=== PATIENT | male | born 1935 | race Caucasian/White ===

== ENCOUNTER 2017-02-19 07:37 | Emergency (ER) | payer MEDICARE, OTHER ==
[2017-02-19] MEDS ORDERED: Sodium Chloride 0.9% 10 ML Syringe FLUSH PRN (07:46)
[2017-02-19] MEDS ORDERED: Sodium Chloride 0.9% 500 ML IV ONE (08:02)
--- NOTE | 2017-02-19 08:13 | EDM.PDOC ---
ED HPI GENERAL MEDICAL PROBLEM - General Chief Complaint: Neurological Problem Stated Complaint: [facility] Time Seen by Provider: 02/19/17 07:46 Source of Information: Reports: Patient, RN Notes Reviewed - History of Present Illness INITIAL COMMENTS - FREE TEXT/NARRATIVE: 81-year-old gentleman has been brought in [facility] having been found on the floor this morning. He lives At [facility]. He does not recall falling. He is not sure how he ended up on the floor. States he "slept just fine" this morning he denies chest pain or difficulty breathing. Denies headache neck or back discomfort. No abdominal discomfort nausea or vomiting. He states he did have a cough a few days ago but that is gone better. He feels that he is hungry. He also feels that his mouth is mildly dry. - Related Data Allergies Allergy/AdvReac Type Severity Reaction Status Date / Time diphenhydramine HCl Allergy Itching Verified 02/19/17 07:43 [From [facility]] Home Meds: Home Meds Aspirin [Ecotrin] 81 mg PO DAILY 02/19/17 [History] Ca Carbonate/Vitamin D3/Vit K [Calcium + D Soft Chewable Tab] 600 mg PO DAILY [History] Lisinopril [Zestril] 40 mg PO DAILY 02/19/17 [History] Lutein 6 mg PO DAILY 02/19/17 [History] Magnesium Hydroxide [Milk of Magnesia] 30 ml PO DAILY PRN 02/19/17 [History] Oxybutynin [Oxybutynin ER] 5 mg PO DAILY 02/19/17 [History] Saxagliptin HCl [Onglyza] 5 mg PO DAILY 02/19/17 [History] Vitamin E 400 unit PO DAILY 02/19/17 [History] amLODIPine [Norvasc] 10 mg PO DAILY 02/19/17 [History] metFORMIN [Glucophage XR] 1,000 mg PO BID 02/19/17 [History] Past Medical History HEENT History: Reports: Macular Degeneration Cardiovascular History: Reports: Heart Murmur, High Cholesterol, Hypertension Respiratory History: Reports: Sleep Apnea Psychiatric History: Reports: Depression Endocrine/Metabolic History: Reports: Diabetes, Type II Oncologic (Cancer) History: Reports: Prostate Social & Family History - Tobacco Use Smoking Status *Q: Unknown Ever Smoked ED ROS GENERAL - Review of Systems Review Of Systems: See Below Constitutional: Denies: Fever, Chills HEENT: Denies: Sinus Problem, Throat Pain Respiratory: Denies: Shortness of Breath Cardiovascular: Denies: Chest Pain, Lightheadedness GI/Abdominal: Denies: Abdominal Pain, Diarrhea, Nausea, Vomiting Musculoskeletal: Denies: Neck Pain, Shoulder Pain, Leg Pain, Joint Pain Skin: Reports: No Symptoms Neurological: Reports: Weakness (Mild generalized). Denies: Headache, Trouble Speaking ED EXAM, NEURO - Physical Exam Exam: See Below General Appearance: Alert, No Apparent Distress Eye Exam: Bilateral Eye: PERRL Throat/Mouth: Normal Inspection, Normal Oropharynx. No: Other Head Exam: Atraumatic. No: Facial Swelling, Facial Tenderness Neck: Supple, Full Range of Motion Respiratory/Chest: No Respiratory Distress, Lungs Clear, Normal Breath Sounds, Chest Non-Tender Cardiovascular: Regular Rate, Rhythm GI/Abdominal: Soft, Non-Tender. No: Guarding Neurological: Alert, No Motor/Sensory Deficits Back Exam: Other (No bruising or swelling visible). No: CVA Tenderness (L), CVA Tenderness (R), Paraspinal Tenderness, Vertebral Tenderness Extremities: Normal Inspection, Normal Range of Motion. No: Pedal Edema, Arm Pain, Leg Pain Skin Exam: Warm, Dry, Normal Color Course - Vital Signs Last Recorded V/S: Last Vital Signs Temp 98.8 F 02/19/17 07:47 Pulse 61 02/19/17 07:47 Resp 15 02/19/17 07:47 BP 160/84 H 02/19/17 07:47 Pulse Ox 90 L 02/19/17 07:47 - Orders/Labs/Meds Orders: Active Orders 24 hr Category Date Time Status Peripheral IV Care [RC] . DIRECTED Care 02/19/17 07:47 Active Chest 1V Frontal [CR] Stat Exams 02/19/17 10:29 Taken Sodium Chloride 0.9% [Saline Flush] Med 02/19/17 07:46 Active 10 ml FLUSH ASDIRECTED PRN Peripheral IV Insertion Adult [OM.PC] Stat Oth 02/19/17 07:46 Ordered Medication Orders Sodium Chloride (Saline Flush) 10 ml FLUSH ASDIRECTED PRN PRN Reason: Keep Vein Open Last Admin: 02/19/17 08:59 Dose: 10 ml Labs: Laboratory Tests 02/19/17 02/19/17 02/19/17 Range/Units 08:10 08:10 08:10 WBC 7.37 (4.23-9.07) K/mm3 RBC 4.52 L (4.63-6.08) M/mm3 Hgb 12.4 L (13.7-17.5) gm/L Hct 36.0 L (40.1-51.0) % MCV 79.6 (79.0-92.2) fl MCH 27.4 (25.7-32.2) pg MCHC 34.4 (32.2-35.5) g/dl RDW Std Deviation 37.5 (35.1-43.9) fL Plt Count 163 (163-337) K/mm3 MPV 10.0 (9.4-12.3) fl Neut % (Auto) 75.0 H (34.0-67.9) % Lymph % (Auto) 11.5 L (21.8-53.1) % [place] % (Auto) 10.0 (5.3-12.2) % Eos % (Auto) 3.1 (0.8-7.0) Baso % (Auto) 0.3 (0.1-1.2) % Neut # (Auto) 5.52 H (1.78-5.38) K/mm3 Lymph # (Auto) 0.85 L (1.32-3.57) K/mm3 [place] # (Auto) 0.74 (0.30-0.82) K/mm3 Eos # (Auto) 0.23 (0.04-0.54) K/mm3 Baso # (Auto) 0.02 (0.01-0.08) K/mm3 Sodium 140 (136-145) mEq/L Potassium 3.5 (3.5-5.1) mEq/L Chloride 103 (98-107) mEq/L Carbon Dioxide 28 (21-32) mEq/L Anion Gap 12.5 (5-15) BUN 25 H (7-18) mg/dL Creatinine 1.4 H (0.7-1.3) mg/dL Est Cr Clr Drug Dosing 36.08 mL/min Estimated GFR (MDRD) 48 (>60) mL/min BUN/Creatinine Ratio 17.9 (14-18) Glucose 121 H (83-115) mg/dL Calcium 9.1 (8.5-10.1) mg/dL Total Bilirubin 0.8 (0.2-1.0) mg/dL AST 17 (15-37) U/L ALT 10 L (16-63) U/L Alkaline Phosphatase 55 (46-116) U/L B-Natriuretic Peptide 147 H (0-100) pg/mL Total Protein 6.7 (6.4-8.2) g/dl Albumin 3.5 (3.4-5.0) g/dl Globulin 3.2 gm/dL Albumin/Globulin Ratio 1.1 (1-2) Urine Color (Yellow) Urine Appearance (Clear) Urine pH (5.0-8.0) Ur Specific [place] (1.005-1.030) Urine Protein (Negative) Urine Glucose (UA) (Negative) Urine Ketones (Negative) Urine Occult Blood (Negative) Urine Nitrite (Negative) Urine Bilirubin (Negative) Urine Urobilinogen (0.2-1.0) Ur Leukocyte Esterase (Negative) Urine RBC (0-5) /hpf Urine WBC (0-5) /hpf Ur Epithelial Cells (0-5) /hpf Urine Bacteria (FEW) /hpf Urine Mucus (FEW) /hpf Urine Yeast (NOT SEEN) 02/19/17 Range/Units 08:25 WBC (4.23-9.07) K/mm3 RBC (4.63-6.08) M/mm3 Hgb (13.7-17.5) gm/L Hct (40.1-51.0) % MCV (79.0-92.2) fl MCH (25.7-32.2) pg MCHC (32.2-35.5) g/dl RDW Std Deviation (35.1-43.9) fL Plt Count (163-337) K/mm3 MPV (9.4-12.3) fl Neut % (Auto) (34.0-67.9) % Lymph % (Auto) (21.8-53.1) % [place] % (Auto) (5.3-12.2) % Eos % (Auto) (0.8-7.0) Baso % (Auto) (0.1-1.2) % Neut # (Auto) (1.78-5.38) K/mm3 Lymph # (Auto) (1.32-3.57) K/mm3 [place] # (Auto) (0.30-0.82) K/mm3 Eos # (Auto) (0.04-0.54) K/mm3 Baso # (Auto) (0.01-0.08) K/mm3 Sodium (136-145) mEq/L Potassium (3.5-5.1) mEq/L Chloride (98-107) mEq/L Carbon Dioxide (21-32) mEq/L Anion Gap (5-15) BUN (7-18) mg/dL Creatinine (0.7-1.3) mg/dL Est Cr Clr Drug Dosing mL/min Estimated GFR (MDRD) (>60) mL/min BUN/Creatinine Ratio (14-18) Glucose (83-115) mg/dL Calcium (8.5-10.1) mg/dL Total Bilirubin (0.2-1.0) mg/dL AST (15-37) U/L ALT (16-63) U/L Alkaline Phosphatase (46-116) U/L B-Natriuretic Peptide (0-100) pg/mL Total Protein (6.4-8.2) g/dl Albumin (3.4-5.0) g/dl Globulin gm/dL Albumin/Globulin Ratio (1-2) Urine Color Light yellow (Yellow) Urine Appearance Clear (Clear) Urine pH 7.5 (5.0-8.0) Ur Specific [place] 1.020 (1.005-1.030) Urine Protein 1+ H (Negative) Urine Glucose (UA) Negative (Negative) Urine Ketones Negative (Negative) Urine Occult Blood 1+ H (Negative) Urine Nitrite Negative (Negative) Urine Bilirubin Negative (Negative) Urine Urobilinogen 0.2 (0.2-1.0) Ur Leukocyte Esterase Negative (Negative) Urine RBC 10-20 H (0-5) /hpf Urine WBC 0-5 (0-5) /hpf Ur Epithelial Cells Not seen (0-5) /hpf Urine Bacteria Not seen (FEW) /hpf Urine Mucus Not seen (FEW) /hpf Urine Yeast Not seen (NOT SEEN) Meds: Medications Generic Name Dose Route Start Last Admin Trade Name Freq PRN Reason Stop Dose Admin Sodium Chloride 10 ml 02/19/17 07:46 02/19/17 08:59 Saline Flush FLUSH 10 ml ASDIRECTED PRN Administration Keep Vein Open Discontinued Medications Generic Name Dose Route Start Last Admin Trade Name Martha PRN Reason Stop Dose Admin Sodium Chloride 500 mls @ 999 mls/hr 02/19/17 08:02 02/19/17 08:57 Normal Saline IV 02/19/17 08:32 999 mls/hr .BOLUS ONE Administration - Re-Assessments/Exams Free Text/Narrative Re-Assessment/Exam: 02/19/17 11:00. Labs all came back relatively normal. Chest x-ray looks fine. Her sats have been running around 90 with occasional readings up to 91 or 92 and at times dropping down to 88 to 89%. He is not in failure. Does not feel short of breath. A son is here and he is aware of his generalized weakness, balance difficulty. He states there is an order in for physical therapy evaluation and to work with him with some strengthening exercises. That is a reasonable plan. If it turns out that he is not able to manage at [facility] or his symptoms start worsening then detention placement will need to be a consideration. Departure - Departure Time of Disposition: 10:49 Disposition: Home, Self-Care 01 Condition: fair Clinical Impression: Fall Qualifiers: Encounter type: initial encounter Qualified Code(s): W19.XXXA - Unspecified fall, initial encounter - Discharge Information Instructions: Fall Prevention in the Home, [id number] Referrals: Lisha Vargas DO [Primary Care Provider] - Forms: ED Department Discharge Additional Instructions: Drink plenty of water to maintain hydration, continue current medications, continue to use walker when standing or walking to try to prevent further falling as best you can, proceed with plan for physical therapy evaluation, strengthening exercises to help you with your strength and balance, followup with your regular medical provider as needed, return to ED as needed - My Orders Last 24 Hours: My Active Orders 02/19/17 07:46 Sodium Chloride 0.9% [Saline Flush] 10 ml FLUSH ASDIRECTED PRN Peripheral IV Insertion Adult [OM.PC] Stat 02/19/17 07:47 Peripheral IV Care [RC] . DIRECTED 02/19/17 10:29 Chest 1V Frontal [CR] Stat - Assessment/Plan Last 24 Hours: My Active Orders 02/19/17 07:46 Sodium Chloride 0.9% [Saline Flush] 10 ml FLUSH ASDIRECTED PRN Peripheral IV Insertion Adult [OM.PC] Stat 02/19/17 07:47 Peripheral IV Care [RC] . DIRECTED 02/19/17 10:29 Chest 1V Frontal [CR] Stat
--- NOTE | 2017-02-19 09:00 | CT ---
Head CT Technique: Multiple axial sections through the brain were obtained. Intravenous contrast was not utilized. Comparison: No previous intracranial imaging is available. Findings: Ventricles along with basal cisterns and sulci over the convexities are moderately prominent. There is an area of diminished density noted within the upper right posterior parietal region likely representing a small old infarct. Diminished density is noted within portions of the basal ganglia and within the periventricular and subcortical white matter compatible with small vessel ischemic demyelination change. Old lacunar infarcts are noted within the basal ganglia. No intracranial hemorrhage is seen. No midline shift or mass effect is seen. Mild atherosclerotic change is noted within the vertebral vessels as well as within the carotid siphon. Bone window settings were reviewed which shows no discrete calvarial abnormality. Visualized sinuses are clear. Impression: 1. Senescent change as described above. 2. No acute intracranial abnormality is identified on noncontrast head CT study. Diagnostic code #2
[2017-02-19 11:28] VITALS: BP 140/82
--- NOTE | 2017-02-20 07:39 | CR ---
Chest: Portable view of the chest was obtained. Comparison: No previous study. Heart size is normal. Tortuous thoracic aorta is seen. Lungs are clear. Left shoulder prosthesis is seen. Impression: 1. Nothing acute is identified on portable chest x-ray. Diagnostic code #2
== END 2017-02-19 11:28 | disposition home or self-care (01) ==
LOC: JD.ED 07:37
DX: Z04.3 Encounter for examination and observation following other accident (principal); Z79.82 Long term (current) use of aspirin; Z79.899 Other long term (current) drug therapy; E78.00 Pure hypercholesterolemia, unspecified; I10 Essential (primary) hypertension; F32.9 Major depressive disorder, single episode, unspecified; E11.9 Type 2 diabetes mellitus without complications; W19.XXXA Unspecified fall, initial encounter
CPT/HCPCS: 36415; 70450; 71010; 80053; 81001; 83880; 85025; 96360; 99285; J7040; J7050; 99283

== ENCOUNTER 2017-04-17 20:08 | Inpatient (IN) | payer MEDICARE, OTHER ==
--- NOTE | 2017-04-17 20:50 | EDM.PDOC ---
ED HPI GENERAL MEDICAL PROBLEM - General Chief Complaint: Neurological Problem Stated Complaint: [facility] Time Seen by Provider: 04/17/17 20:25 Source of Information: Reports: Patient, RN Notes Reviewed History Limitations: Reports: No Limitations - History of Present Illness INITIAL COMMENTS - FREE TEXT/NARRATIVE: The patient is sent from [facility] [employer] [facility]. He states that he was unable to support his own weight and fell to the floor around 04:30 this morning, when he tried to get out of bed. He was assisted back into bed, but again fell later today. He states that he has been in bed pretty much all day. He states that he felt "poorly" this morning, but was not able to elaborate. He specifically denies nausea, vomiting, constipation, diarrhea, or urinary symptoms. He states that he had similar symptoms about 1 or 2 months ago when he was hospitalized, but he does not recall the reason for hospitalization. The [facility] P[facility] at [facility]. - Related Data Allergies Allergy/AdvReac Type Severity Reaction Status Date / Time diphenhydramine HCl Allergy Itching Verified 04/17/17 20:16 [From [facility]] Home Meds: Home Meds Aspirin [Ecotrin] 81 mg PO DAILY 02/19/17 [History] Ca Carbonate/Vitamin D3/Vit K [Calcium + D Soft Chewable Tab] 600 mg PO BID [History] Lisinopril [Zestril] 40 mg PO DAILY 02/19/17 [History] Lutein 6 mg PO BID 02/19/17 [History] Magnesium Hydroxide [Milk of Magnesia] 30 ml PO DAILY PRN 02/19/17 [History] Oxybutynin [Oxybutynin ER] 5 mg PO DAILY 02/19/17 [History] Saxagliptin HCl [Onglyza] 5 mg PO DAILY 02/19/17 [History] Vitamin E 400 unit PO DAILY 02/19/17 [History] amLODIPine [Norvasc] 10 mg PO DAILY 02/19/17 [History] metFORMIN [Glucophage XR] 1,000 mg PO BID 02/19/17 [History] Ascorbic Acid 1,000 gm PO BID 04/17/17 [History] Bilberry 60 mg PO BID 04/17/17 [History] Past Medical History HEENT History: Reports: Macular Degeneration Cardiovascular History: Reports: High Cholesterol, Hypertension Respiratory History: Reports: Sleep Apnea (untreated) Psychiatric History: Reports: Depression Endocrine/Metabolic History: Reports: Diabetes, Type II Oncologic (Cancer) History: Reports: Prostate - Past Surgical History Male Surgical History: Reports: Other (See Below) (Prostate seeding) Social & Family History - Family History Family Medical History: Noncontributory - Tobacco Use Smoking Status *Q: Former Smoker Used Tobacco, but Quit: Yes Second Hand Smoke Exposure: No - Caffeine Use Caffeine Use: Reports: None - Alcohol Use Alcohol Use History: Yes Alcohol Use Frequency: Socially - Recreational Drug Use Recreational Drug Use: No - Living Situation & Occupation Living situation: Reports: , Assisted Living Occupation: Retired ED ROS GENERAL - Review of Systems Review Of Systems: See Below Constitutional: Reports: No Symptoms HEENT: Reports: No Symptoms Respiratory: Reports: No Symptoms Cardiovascular: Reports: No Symptoms Endocrine: Reports: No Symptoms GI/Abdominal: Reports: No Symptoms : Reports: No Symptoms Musculoskeletal: Reports: No Symptoms Skin: Reports: No Symptoms Neurological: Reports: No Symptoms Psychiatric: Reports: No Symptoms Hematologic/Lymphatic: Reports: No Symptoms Immunologic: Reports: No Symptoms ED EXAM, GENERAL - Physical Exam Exam: See Below Exam Limited By: No Limitations General Appearance: Alert, WD/WN, No Apparent Distress Eye Exam: Bilateral Eye: Normal Inspection Ears: Normal External Exam, Hearing Grossly Normal Ear Exam: Bilateral Ear: Auricle Normal Nose: Normal Inspection, No Blood Throat/Mouth: Normal Inspection, Normal Lips, Normal Voice, No Airway Compromise Head: Atraumatic, Normocephalic Neck: Normal Inspection, Full Range of Motion Respiratory/Chest: No Respiratory Distress, Lungs Clear, Normal Breath Sounds, No Accessory Muscle Use Cardiovascular: Normal Peripheral Pulses, Regular Rate, Rhythm, No Gallop, No JVD, No Murmur, No Rub Peripheral Pulses: 4+: Radial (L), Radial (R) GI/Abdominal: Normal Bowel Sounds, Soft, No Organomegaly, No Distention, No Abnormal Bruit, No Mass, Distended (Modest, suprapubic), Tender (Suprapubic region only. Nontender elsewhere.) (Male) Exam: Deferred Rectal (Males) Exam: Deferred Back Exam: Normal Inspection, Full Range of Motion, NT Extremities: Normal Inspection, Normal Range of Motion, Normal Capillary Refill , Other (1+ pitting pretibial edema bilaterally) Neurological: Alert, Oriented, Normal Cognition, No Motor/Sensory Deficits, Other (Mild generalized, nonfocal weakness) Psychiatric: Normal Affect Skin Exam: Warm, Dry, Intact, Normal Color, No Rash Lymphatic: No Adenopathy EKG INTERPRETATION EKG Date: 04/17/17 Time: 20:42 Rhythm: NSR Rate (Beats/Min): 66 [place]: LAD-Left [place] Deviation P-Wave: Present QRS: Wide (Nonspecific intraventricular conduction delay) ST-T: Normal QT: Prolonged (QTc 544 ms) EKG Interpretation Comments: Single PAC Course - Vital Signs Last Recorded V/S: Last Vital Signs Temp 37.4 C 04/17/17 20:12 Pulse 68 04/17/17 20:12 Resp 16 04/17/17 20:12 BP 152/74 H 04/17/17 20:12 Pulse Ox 92 L 04/17/17 20:12 - Orders/Labs/Meds Orders: Active Orders 24 hr Category Date Time Status EKG Documentation Completion [RC] STAT Care 04/17/17 20:41 Active Wilson Catheter Insertion [Insert Urinary Catheter] [OM. Care 04/17/17 21:00 Ordered PC] Q24H Urinary Catheter Assessment [RC] ASDIRECTED Care 04/17/17 20:47 Active Chest 1V Frontal [CR] Stat Exams 04/17/17 20:41 Taken Labs: Laboratory Tests 04/17/17 04/17/17 04/17/17 Range/Units 20:40 20:40 21:00 WBC 11.98 H (4.23-9.07) K/mm3 RBC 4.52 L (4.63-6.08) M/mm3 Hgb 12.4 L (13.7-17.5) gm/L Hct 36.3 L (40.1-51.0) % MCV 80.3 (79.0-92.2) fl MCH 27.4 (25.7-32.2) pg MCHC 34.2 (32.2-35.5) g/dl RDW Std Deviation 39.9 (35.1-43.9) fL Plt Count 162 L (163-337) K/mm3 MPV 10.6 (9.4-12.3) fl Neutrophils % (Manual) 94 H (40-60) % Band Neutrophils % 0 (0-10) % Lymphocytes % (Manual) 5 L (20-40) % Atypical Lymphs % 0 % Monocytes % (Manual) 1 L (2-10) % Eosinophils % (Manual) 0 L (0.8-7.0) % Basophils % (Manual) 0 L (0.2-1.2) Platelet Estimate Adequate RBC Morph Comment Normal Sodium 135 L (136-145) mEq/L Potassium 3.8 (3.5-5.1) mEq/L Chloride 97 L (98-107) mEq/L Carbon Dioxide 25 (21-32) mEq/L Anion Gap 16.8 H (5-15) BUN 26 H (7-18) mg/dL Creatinine 1.7 H (0.7-1.3) mg/dL Est Cr Clr Drug Dosing 29.71 mL/min Estimated GFR (MDRD) 39 (>60) mL/min BUN/Creatinine Ratio 15.3 (14-18) Glucose 257 H (83-115) mg/dL Calcium 9.2 (8.5-10.1) mg/dL Magnesium 1.5 L (1.8-2.4) mg/dl Total Bilirubin 0.8 (0.2-1.0) mg/dL AST 20 (15-37) U/L ALT 14 L (16-63) U/L Alkaline Phosphatase 58 (46-116) U/L Troponin I < 0.017 (0.00-0.056) ng/mL Total Protein 7.0 (6.4-8.2) g/dl Albumin 3.6 (3.4-5.0) g/dl Globulin 3.4 gm/dL Albumin/Globulin Ratio 1.1 (1-2) Urine Color Dark yellow (Yellow) Urine Appearance Slt cloudy H (Clear) Urine pH 6.0 (5.0-8.0) Ur Specific [place] 1.025 (1.005-1.030) Urine Protein 2+ H (Negative) Urine Glucose (UA) Trace H (Negative) Urine Ketones Trace H (Negative) Urine Occult Blood 3+ H (Negative) Urine Nitrite Negative (Negative) Urine Bilirubin Negative (Negative) Urine Urobilinogen 0.2 (0.2-1.0) Ur Leukocyte Esterase Negative (Negative) Urine RBC 75-100 H (0-5) /hpf Urine WBC 0-5 (0-5) /hpf Ur Epithelial Cells 0-5 (0-5) /hpf Urine Bacteria Moderate H (FEW) /hpf Urine Mucus Few (FEW) /hpf - Radiology Interpretation Free Text/Narrative:: Portable chest radiograph appears to be grossly normal. Cardiac silhouette is within normal limits. Tortuous aorta. No pulmonary vascular congestion. No pleural effusions. No focal infiltrate. No pneumothorax. Left shoulder replacement noted. Formal read per the Radiologist pending. - Re-Assessments/Exams Free Text/Narrative Re-Assessment/Exam: 04/17/17 21:36 The bladder scan indicated 300 mL urine, therefore a Wilson catheter to a leg bag was ordered. At present, there is 225 mL of ela urine in the container. 04/17/17 22:10 The patient has considerable occult blood in the urine, but no other signs of a UTI. Clinically, he does not complain of flank pain, therefore a ureterolith is not suspected. Given the patient's history of prostate cancer, the blood is most likely stemming from that. The patient's BUN/Cr are elevated at 26/1.7. The patient appears to have worsening chronic renal insufficiency, with a BUN/Cr of 25/1.4 on 02/19/2017 and 17/1.5 on 05/13/2015. I could speculate that his renal failure is due to outlet obstruction. The cause of the patient's generalized weakness has not been identified as yet, however, because the patient lives in independent living, he will not be able to go home tonight, as he would not be able to take care of himself. 04/17/17 22:[address] Barahona at 22:20. She is recommending observation. Departure - Departure Time of Disposition: 22:24 Disposition: Refer to Observation Condition: Fair Clinical Impression: Generalized weakness, Acute on chronic renal failure, Hyperglycemia due to type 2 diabetes mellitus, Urinary retention - Discharge Information - My Orders Last 24 Hours: My Active Orders 04/17/17 20:41 EKG Documentation Completion [RC] STAT Chest 1V Frontal [CR] Stat 04/17/17 20:47 Urinary Catheter Assessment [RC] ASDIRECTED 04/17/17 21:00 Wilson Catheter Insertion [Insert Urinary Catheter] [OM.PC] Q24H - Assessment/Plan Last 24 Hours: My Active Orders 04/17/17 20:41 EKG Documentation Completion [RC] STAT Chest 1V Frontal [CR] Stat 04/17/17 20:47 Urinary Catheter Assessment [RC] ASDIRECTED 04/17/17 21:00 Wilson Catheter Insertion [Insert Urinary Catheter] [OM.PC] Q24H
[2017-04-18] MEDS ORDERED: Temazepam 7.5 MG Cap PO PRN (00:01)
[2017-04-18] MEDS ORDERED: Acetaminophen 325 MG Tab PO PRN (00:01)
[2017-04-18] MEDS ORDERED: 50% Dextrose in Water 50 ML Syringe IVPUSH PRN (00:01)
[2017-04-18] MEDS ORDERED: Magnesium Sulfate/Water 2 GM in Premix Bag 1 BAG IV ONE (00:09)
[2017-04-18] MEDS: Sodium Chloride 0.45% 1,000 ML IV SCH ×2 (00:54→16:53)
[2017-04-18] MEDS: hydrALAZINE 20 MG/ML SDV IVPUSH PRN (01:56)
--- NOTE | 2017-04-18 08:50 | CR ---
Chest: Portable view of the chest was obtained. Comparison: Previous chest x-ray of 02/19/17. Heart size and mediastinum are within normal limits for portable technique. Tortuous thoracic aorta is seen. Lungs are clear with no acute infiltrates. Left shoulder prosthesis is seen. Impression: 1. Nothing acute is identified on portable chest x-ray. No significant change is seen from prior study. Diagnostic code #2
[2017-04-18] MEDS ORDERED: Enoxaparin 30 MG/0.3 ML Syringe SUBCUT SCH (09:00)
[2017-04-18] MEDS ORDERED: Potassium Chloride 10% 20 MEQ/15 ML Soln 30 ML UD Cup PO ONE (09:37)
[2017-04-18] MEDS: Oxybutynin 5 MG Tab.ER PO SCH (09:43)
[2017-04-18] MEDS: Insulin Aspart 100 Units/ML 3 ML Pen SUBCUT SCH ×4 (09:44→22:05)
[2017-04-18] MEDS: Tamsulosin 0.4 MG Cap.ER PO SCH ×2 (11:53→20:02)
--- NOTE | 2017-04-18 11:55 | CT ---
Head CT Technique: Multiple axial sections through the brain were obtained. Intravenous contrast was not utilized. Comparison: Previous head CT study of 02/19/17. Findings: Ventricles along with basal cisterns and sulci over the convexities are moderately prominent. Old infarct is noted within right posterior parietal region. Diminished density is noted within the periventricular and subcortical white matter as well as basal ganglia compatible with small vessel ischemic demyelination change. Old lacunar infarct is noted within the right basal ganglia. No other abnormal parenchymal densities are seen. No evidence of intracranial hemorrhage. No midline shift or mass effect is seen. Bone window settings were reviewed showing mild mucosal thickening within the right frontal sinus believed to be incidental. No acute calvarial abnormality is seen. Atherosclerotic calcification is seen within the carotid siphon and within the vertebral vessels. Impression: 1. Senescent change as described above believed to be stable from prior exam. 2. Nothing acute is appreciated on noncontrast head CT study. No significant change is identified from prior exam. Diagnostic code #2
--- NOTE | 2017-04-18 14:36 | PCM.HP ---
H&P History of Present Illness - General Date of Service: 04/18/17 Admit Problem/Dx: Admission Diagnosis/Problem Admission Diagnosis/Problem Weakness Source of Information: Provider History Limitations: Reports: Other (Incomplete information by provider and patient/family) - History of Present Illness Initial Comments - Free Text/Narative: 81 year old male unable to provide history this am, reportedly told the ED provider that he fell twice and was too weak to get off of the floor. There was no LOC, recollection of the evnts is incomplete. He appears to have acute on chronic changes with a baseline dementia; a speech pathology consuly is pending. As a result of his presentation, a CVA work up has been started. Onset of Symptoms: Reports: Unknown/Unsure Duration of Symptoms: Reports: Week(s):, Getting Worse Location: Reports: Generalized Severity: Moderate Improves with: Reports: None Worsens with: Reports: None Associated Symptoms: Reports: Malaise, Weakness - Related Data Allergies/Adverse Reactions: Allergies Allergy/AdvReac Type Severity Reaction Status Date / Time diphenhydramine HCl Allergy Itching Verified 04/17/17 23:54 [From Benadryl] Home Medications: Home Meds Aspirin [Ecotrin] 81 mg PO DAILY 02/19/17 [History] Ca Carbonate/Vitamin D3/Vit K [Calcium + D Soft Chewable Tab] 600 mg PO BID [History] Lisinopril [Zestril] 40 mg PO DAILY 02/19/17 [History] Lutein 6 mg PO BID 02/19/17 [History] Magnesium Hydroxide [Milk of Magnesia] 30 ml PO DAILY PRN 02/19/17 [History] Oxybutynin [Oxybutynin ER] 5 mg PO DAILY 02/19/17 [History] Saxagliptin HCl [Onglyza] 5 mg PO DAILY 02/19/17 [History] Vitamin E 400 unit PO DAILY 02/19/17 [History] amLODIPine [Norvasc] 10 mg PO DAILY 02/19/17 [History] metFORMIN [Glucophage XR] 1,000 mg PO BID 02/19/17 [History] Ascorbic Acid 500 mg PO BID 04/17/17 [History] Bilberry 60 mg PO BID 04/17/17 [History] Past Medical History HEENT History: Reports: Macular Degeneration Other HEENT History: Glasses. upper dentures Cardiovascular History: Reports: Heart Murmur, High Cholesterol, Hypertension Respiratory History: Reports: Sleep Apnea Other Respiratory History: Does not use CPAP machine but has one at home Genitourinary History: Reports: Retention, Urinary Other Musculoskeletal History: Shoulder joint replacement. knee joint replacement Neurological History: Reports: TIA Other Neuro History: Thinks he had a mini stroke at some point Psychiatric History: Reports: Depression Endocrine/Metabolic History: Reports: Diabetes, Type II Oncologic (Cancer) History: Reports: Prostate - Past Surgical History Male Surgical History: Reports: Other (See Below) Other Male Surgeries/Procedures: Prostate CA history - states - "no surgeries were done" Social & Family History - Family History Family Medical History: Noncontributory - Tobacco Use Smoking Status *Q: Former Smoker Years of Tobacco use: 10 Packs/Tins Daily: 1 Used Tobacco, but Quit: Yes Month Tobacco Last Used: 1963 Second Hand Smoke Exposure: No - Caffeine Use Caffeine Use: Reports: Coffee Other Caffeine Use: Decaff - Recreational Drug Use Recreational Drug Use: No - Living Situation & Occupation Living situation: Reports: , Assisted Living Occupation: Retired H&P Review of Systems - Review of Systems: Review Of Systems: See Below General: Reports: Malaise, Weakness, Fatigue HEENT: Reports: No Symptoms Pulmonary: Reports: No Symptoms Cardiovascular: Reports: No Symptoms Gastrointestinal: Reports: No Symptoms Genitourinary: Reports: No Symptoms Musculoskeletal: Reports: No Symptoms Skin: Reports: No Symptoms Psychiatric: Reports: No Symptoms Neurological: Reports: No Symptoms Hematologic/Lymphatic: Reports: No Symptoms Immunologic: Reports: No Symptoms Exam - Exam Exam: See Below - Vital Signs Vital Signs: Last Vital Signs Temp 36.4 C 04/18/17 08:26 Pulse 63 04/18/17 09:51 Resp 14 04/18/17 08:26 BP 131/67 04/18/17 09:51 Pulse Ox 96 04/18/17 09:51 Weight: 73.709 kg - Exam Quality Assessment: Supplemental Oxygen General: Alert, Oriented (self) HEENT: Hearing Intact, Other (pallor), PERRLA Neck: Supple, Trachea Midline Lungs: Normal Respiratory Effort, Decreased Breath Sounds Cardiovascular: Regular Rate, Regular Rhythm Abdomen: Normal Bowel Sounds, Soft (Male) Exam: Deferred Rectal (Males) Exam: Deferred Back Exam: Normal Inspection Extremities: Normal Pulses Skin: Warm Neurological: Cranial Nerves Intact Neuro Extensive - Mental Status: Alert, Disorientation to Place, Disorientation to Time Neuro Extensive - Motor, Sensory, Reflexes: CN II-XII Intact Psychiatric: Alert, Depressed - Patient Data Lab Results Last 24 hrs: Laboratory Results - last 24 hr 04/18/17 04/18/17 04/18/17 Range/Units 01:20 06:02 06:22 WBC (4.23-9.07) K/mm3 RBC (4.63-6.08) M/mm3 Hgb (13.7-17.5) gm/L Hct (40.1-51.0) % MCV (79.0-92.2) fl MCH (25.7-32.2) pg MCHC (32.2-35.5) g/dl RDW Std Deviation (35.1-43.9) fL Plt Count (163-337) K/mm3 MPV (9.4-12.3) fl Neut % (Auto) (34.0-67.9) % Lymph % (Auto) (21.8-53.1) % [place] % (Auto) (5.3-12.2) % Eos % (Auto) (0.8-7.0) Baso % (Auto) (0.1-1.2) % Neut # (Auto) (1.78-5.38) K/mm3 Lymph # (Auto) (1.32-3.57) K/mm3 [place] # (Auto) (0.30-0.82) K/mm3 Eos # (Auto) (0.04-0.54) K/mm3 Baso # (Auto) (0.01-0.08) K/mm3 Manual Slide Review Sodium 137 (136-145) mEq/L Potassium 3.3 L (3.5-5.1) mEq/L Chloride 101 (98-107) mEq/L Carbon Dioxide 26 (21-32) mEq/L Anion Gap 13.3 (5-15) BUN 21 H (7-18) mg/dL Creatinine 1.2 (0.7-1.3) mg/dL Est Cr Clr Drug Dosing 44.37 mL/min Estimated GFR (MDRD) 58 (>60) mL/min BUN/Creatinine Ratio 17.5 (14-18) Glucose 170 H (83-115) mg/dL POC Glucose (83-110) mg/dL Calcium 8.5 (8.5-10.1) mg/dL Magnesium 2.0 (1.8-2.4) mg/dl Troponin I 0.029 (0.00-0.056) ng/mL Mycoplasma pneumon IgM Negative (NEGATIVE) MRSA (PCR) Negative 04/18/17 04/18/17 04/18/17 Range/Units 06:22 06:33 11:05 WBC 10.96 H (4.23-9.07) K/mm3 RBC 4.20 L (4.63-6.08) M/mm3 Hgb 11.5 L (13.7-17.5) gm/L Hct 33.8 L (40.1-51.0) % MCV 80.5 (79.0-92.2) fl MCH 27.4 (25.7-32.2) pg MCHC 34.0 (32.2-35.5) g/dl RDW Std Deviation 39.5 (35.1-43.9) fL Plt Count 130 L (163-337) K/mm3 MPV 10.4 (9.4-12.3) fl Neut % (Auto) 79.7 H (34.0-67.9) % Lymph % (Auto) 9.6 L (21.8-53.1) % [place] % (Auto) 9.9 (5.3-12.2) % Eos % (Auto) 0.4 L (0.8-7.0) Baso % (Auto) 0.1 (0.1-1.2) % Neut # (Auto) 8.75 H (1.78-5.38) K/mm3 Lymph # (Auto) 1.05 L (1.32-3.57) K/mm3 [place] # (Auto) 1.08 H (0.30-0.82) K/mm3 Eos # (Auto) 0.04 (0.04-0.54) K/mm3 Baso # (Auto) 0.01 (0.01-0.08) K/mm3 Manual Slide Review Abnormal smear Sodium (136-145) mEq/L Potassium (3.5-5.1) mEq/L Chloride (98-107) mEq/L Carbon Dioxide (21-32) mEq/L Anion Gap (5-15) BUN (7-18) mg/dL Creatinine (0.7-1.3) mg/dL Est Cr Clr Drug Dosing mL/min Estimated GFR (MDRD) (>60) mL/min BUN/Creatinine Ratio (14-18) Glucose (83-115) mg/dL POC Glucose 150 H 212 H (83-110) mg/dL Calcium (8.5-10.1) mg/dL Magnesium (1.8-2.4) mg/dl Troponin I (0.00-0.056) ng/mL Mycoplasma pneumon IgM (NEGATIVE) MRSA (PCR) Result Diagrams: 04/19/17 07:37 04/19/17 07:37 *Q Meaningful Use (ADM) - VTE *Q VTE Criteria *Q: - Stroke *Q Stroke Criteria *Q: - AMI *Q AMI Criteria *Q: - Problem List (1) Acute on chronic renal failure SNOMED Code(s): 482704736 ICD Code: N17.9 - ACUTE KIDNEY FAILURE, UNSPECIFIED; N18.9 - CHRONIC KIDNEY DISEASE, UNSPECIFIED Status: Acute Current Visit: Yes (2) Generalized weakness SNOMED Code(s): 87269018 ICD Code: R53.1 - WEAKNESS Status: Acute Current Visit: Yes (3) Hyperglycemia due to type 2 diabetes mellitus SNOMED Code(s): 757755912761974, 197595647909475 ICD Code: E11.65 - TYPE 2 DIABETES MELLITUS WITH HYPERGLYCEMIA Status: Acute Current Visit: Yes Problem List Initiated/Reviewed/Updated: Yes Orders Last 24hrs: Active Orders 24 hr Category Date Time Status Activity as Tolerated [RC] QSHIFT Care 04/18/17 00:17 Active Antiembolic Devices [RC] BID Care 04/18/17 00:12 Active Blood Glucose Check, Bedside [RC] QIDACANDBED Care 04/18/17 00:01 Active Oxygen Therapy [RC] ASDIRECTED Care 04/18/17 04:13 Active Consult to Occupational Therapy [OT Evaluation and Cons 04/18/17 09:54 Active Treatment] [CONS] Routine Consult to Physical Therapy [PT Evaluation and Cons 04/18/17 09:53 Active Treatment] [CONS] Routine Consult to College Teacher [CONS] Routine Cons 04/18/17 09:53 Active Consult to Speech Language Pathology [SHOP ASSISTANT Evaluation Cons 04/18/17 11:38 Active and Treatment] [CONS] Routine Consistent Carbohydrate Diet [DIET] Diet 04/18/17 Breakfast Active Heart Healthy Diet [DIET] Diet 04/18/17 Breakfast Active CBC W/O DIFF,HEMOGRAM [HEME] MOTH@0700 Lab 04/21/17 07:00 Ordered CBC W/O DIFF,HEMOGRAM [HEME] MOTH@0700 Lab 04/25/17 07:00 Ordered CBC W/O DIFF,HEMOGRAM [HEME] MOTH@0700 Lab 04/28/17 07:00 Ordered CBC W/O DIFF,HEMOGRAM [HEME] MOTH@0700 Lab 05/02/17 07:00 Ordered CBC W/O DIFF,HEMOGRAM [HEME] MOTH@00 Lab 05/05/17 07:00 Ordered CBC W/O DIFF,HEMOGRAM [HEME] MOTH@0700 Lab 05/09/17 07:00 Ordered Acetaminophen [Tylenol] Med 04/18/17 00:01 Active 650 mg PO Q4H PRN Aspirin [Halfprin] Med 04/19/17 09:00 Active 81 mg PO DAILY Dextrose 50% in Water Med 04/18/17 00:01 Active 50 ml IVPUSH ASDIRECTED PRN Enoxaparin [Lovenox] Med 04/19/17 09:00 Active 40 mg SUBCUT DAILY Insulin Aspart [NovoLOG] Med 04/18/17 07:00 Active See Protocol SUBCUT QIDACANDBED Oxybutynin [Oxybutynin ER] Med 04/18/17 09:15 Active 5 mg PO DAILY Sodium Chloride 0.45% 1,000 ml Med 04/18/17 00:15 Active IV ASDIRECTED Tamsulosin [Flomax] Med 04/18/17 11:30 Active 0.4 mg PO BID Temazepam [Restoril] Med 04/18/17 00:01 Active 7.5 mg PO BEDTIME PRN amLODIPine [Norvasc] Med 04/19/17 09:00 Active 10 mg PO DAILY hydrALAZINE [Apresoline] Med 04/18/17 00:01 Active 10 mg IVPUSH Q6H PRN Antiembolic Hose [OM.PC] Routine Oth 04/18/17 00:09 Ordered Resuscitation Status Routine Resus Stat 04/18/17 00:42 Ordered Medication Orders Acetaminophen (Tylenol) 650 mg PO Q4H PRN PRN Reason: Pain Amlodipine Besylate (Norvasc) 10 mg PO DAILY [facility] Aspirin (Halfprin) 81 mg PO DAILY [facility] Dextrose/Water (Dextrose 50% In Water) 50 ml IVPUSH ASDIRECTED PRN PRN Reason: Hypoglycemia Enoxaparin Sodium (Lovenox) 40 mg SUBCUT DAILY [facility] Hydralazine HCl (Apresoline) 10 mg IVPUSH Q6H PRN PRN Reason: Hypertension Last Admin: 04/18/17 01:56 Dose: 10 mg Sodium Chloride (Sodium Chloride 0.45%) 1,000 mls @ 70 mls/hr IV ASDIRECTED [facility] Last Admin: 04/18/17 00:54 Dose: 70 mls/hr Insulin Aspart (Novolog) 0 unit SUBCUT QIDACANDBED [facility] PRN Reason: Protocol Last Admin: 04/18/17 11:54 Dose: 2 units Admin: 04/18/17 09:44 Dose: 1 units Oxybutynin Chloride (Oxybutynin Er) 5 mg PO DAILY [facility] Last Admin: 04/18/17 09:43 Dose: 5 mg Tamsulosin HCl (Flomax) 0.4 mg PO BID [facility] Last Admin: 04/18/17 11:53 Dose: 0.4 mg Temazepam (Restoril) 7.5 mg PO BEDTIME PRN PRN Reason: Sleep Assessment/Plan Comment:: Impression: AMS, acute on chronic likely baseline dementia CT of head oredered this am; documents multiple infarcts Abnormal ambulation, falls to the right Can not exclude CVA; generalized weakness of unclear etiology Hypomagnesemia Chronic DM HTN HLD Prostate cancer Macular Degeneration CKD, stage III Plan: CT of head, completed MRA Carotid dupelx 2D echo ASA Home meds Daily labs neurochecks SW/PT/OT DVT/GI prophylaxis
[2017-04-18] MEDS: Simvastatin 10 MG Tab PO SCH (20:03)
[2017-04-19] MEDS: Sodium Chloride 0.45% 1,000 ML IV SCH ×2 (08:01→22:05)
[2017-04-19] MEDS ORDERED: Gadobenate Dimeglumine 529 MG/ML 20 ML SDV IVPUSH ONE (08:03)
[2017-04-19] MEDS ORDERED: Sodium Chloride 0.9% 10 ML SDV FLUSH ONE (08:03)
[2017-04-19] MEDS: Insulin Aspart 100 Units/ML 3 ML Pen SUBCUT SCH ×4 (08:55→21:58)
[2017-04-19] MEDS: Oxybutynin 5 MG Tab.ER PO SCH (08:56)
[2017-04-19] MEDS: Enoxaparin 40 MG/0.4 ML Syringe SUBCUT SCH (08:56)
[2017-04-19] MEDS: amLODIPine 10 MG Tab PO SCH (08:56)
[2017-04-19] MEDS: Aspirin 81 MG Tab.EC PO SCH (08:56)
[2017-04-19] MEDS: Tamsulosin 0.4 MG Cap.ER PO SCH ×2 (08:58→21:56)
--- NOTE | 2017-04-19 10:40 | MR ---
MR angiogram of neck Technique: Postcontrast MRA angiogram was obtained of the neck. Multiple MIPS images were obtained. Findings: Common carotid arteries appear patent. No focal areas of significant stenosis is seen. Carotid bulbs are unremarkable. Internal carotid arteries show mild narrowing within the left carotid siphon. Vertebral artery on the left side shows minimal stenosis distally. Right vertebral artery shows mild diffuse narrowing distally which is likely developmental. No other areas of stenosis are seen. Impression: 1. Mild areas of narrowing as described above. Findings do not appear to be hemodynamically significant. Diagnostic code #2
--- NOTE | 2017-04-19 13:53 | US ---
Carotid ultrasound: Duplex and color flow imaging was obtained of the carotid arteries. Mild amount of plaque noted within both carotid bulbs. Velocity measurements Right side: CCA has a peak systolic velocity of 0.53 m/s. ICA has a peak systolic velocity of 0.38 m/s and peak end-diastolic velocity of 0.11 m/s. ECA has a peak systolic velocity of 0.72 m/s. Vertebral artery has a peak systolic velocity of 0.28 m/s. ICA/CCA ratio is 0.72. Left side: CCA has a peak systolic velocity of 0.47 m/s. ICA has a peak systolic velocity of 0.34 m/s and peak end-diastolic velocity of 0.08 m/s. ECA has a peak systolic velocity of 1.12 m/s. Vertebral artery has a peak systolic velocity of 0.36 m/s. ICA/CCA ratio is 0.73. Impression: 1. Mild amount of plaque within both carotid bulbs. 2. Velocity measurements within both internal carotid arteries correspond to stenosis in the range of 1-49%. Diagnostic code #2
--- NOTE | 2017-04-19 14:10 | PCM.PN ---
- General Info Date of Service: 04/19/17 Functional Status: Reports: tolerating diet, ambulating, urinating - Review of Systems General: Reports: Weakness (improved) HEENT: Reports: no symptoms Pulmonary: Reports: no symptoms Cardiovascular: Reports: No Symptoms Gastrointestinal: Reports: No symptoms Genitourinary: Reports: no symptoms Musculoskeletal: Reports: no symptoms Skin: Reports: no symptoms Neurological: Reports: No Symptoms Psychiatric: Reports: no symptoms - Patient Data Vitals - most recent: Last Vital Signs Temp 36.9 C 04/19/17 12:20 Pulse 75 04/19/17 12:20 Resp 12 04/19/17 12:20 BP 132/89 04/19/17 12:20 Pulse Ox 97 04/19/17 12:20 Weight - most recent: 73.936 kg I&O - last 24 hours: Intake & Output 04/18/17 04/19/17 04/19/17 22:59 06:59 14:59 Intake Total 870 1263 100 Output Total 200 Balance 870 1063 100 Lab Results last 24 hrs: Laboratory Results - last 24 hr 04/18/17 04/18/17 04/18/17 Range/Units 17:06 17:15 21:31 WBC (4.23-9.07) K/mm3 RBC (4.63-6.08) M/mm3 Hgb (13.7-17.5) gm/L Hct (40.1-51.0) % MCV (79.0-92.2) fl MCH (25.7-32.2) pg MCHC (32.2-35.5) g/dl RDW Std Deviation (35.1-43.9) fL Plt Count (163-337) K/mm3 MPV (9.4-12.3) fl Neut % (Auto) (34.0-67.9) % Lymph % (Auto) (21.8-53.1) % [place] % (Auto) (5.3-12.2) % Eos % (Auto) (0.8-7.0) Baso % (Auto) (0.1-1.2) % Neut # (Auto) (1.78-5.38) K/mm3 Lymph # (Auto) (1.32-3.57) K/mm3 [place] # (Auto) (0.30-0.82) K/mm3 Eos # (Auto) (0.04-0.54) K/mm3 Baso # (Auto) (0.01-0.08) K/mm3 Sodium (136-145) mEq/L Potassium (3.5-5.1) mEq/L Chloride (98-107) mEq/L Carbon Dioxide (21-32) mEq/L Anion Gap (5-15) BUN (7-18) mg/dL Creatinine (0.7-1.3) mg/dL Est Cr Clr Drug Dosing mL/min Estimated GFR (MDRD) (>60) mL/min BUN/Creatinine Ratio (14-18) Glucose (83-115) mg/dL POC Glucose 172 H 203 H (83-110) mg/dL Calcium (8.5-10.1) mg/dL Troponin I < 0.017 (0.00-0.056) ng/mL Triglycerides (<150) mg/dL Cholesterol (<200) mg/dL LDL Cholesterol Direct (<100) mg/dL HDL Cholesterol (40-59) mg/dL TSH 3rd Generation (0.358-3.74) uIU/mL 04/19/17 04/19/17 04/19/17 Range/Units 06:37 07:37 07:37 WBC 7.65 (4.23-9.07) K/mm3 RBC 4.16 L (4.63-6.08) M/mm3 Hgb 11.5 L (13.7-17.5) gm/L Hct 33.8 L (40.1-51.0) % MCV 81.3 (79.0-92.2) fl MCH 27.6 (25.7-32.2) pg MCHC 34.0 (32.2-35.5) g/dl RDW Std Deviation 40.1 (35.1-43.9) fL Plt Count 127 L (163-337) K/mm3 MPV 10.3 (9.4-12.3) fl Neut % (Auto) 76.1 H (34.0-67.9) % Lymph % (Auto) 10.8 L (21.8-53.1) % [place] % (Auto) 8.8 (5.3-12.2) % Eos % (Auto) 3.9 (0.8-7.0) Baso % (Auto) 0.1 (0.1-1.2) % Neut # (Auto) 5.82 H (1.78-5.38) K/mm3 Lymph # (Auto) 0.83 L (1.32-3.57) K/mm3 [place] # (Auto) 0.67 (0.30-0.82) K/mm3 Eos # (Auto) 0.30 (0.04-0.54) K/mm3 Baso # (Auto) 0.01 (0.01-0.08) K/mm3 Sodium 136 (136-145) mEq/L Potassium 3.8 (3.5-5.1) mEq/L Chloride 102 (98-107) mEq/L Carbon Dioxide 28 (21-32) mEq/L Anion Gap 9.8 (5-15) BUN 18 (7-18) mg/dL Creatinine 1.2 (0.7-1.3) mg/dL Est Cr Clr Drug Dosing 44.37 mL/min Estimated GFR (MDRD) 58 (>60) mL/min BUN/Creatinine Ratio 15.0 (14-18) Glucose 163 H (83-115) mg/dL POC Glucose 151 H (83-110) mg/dL Calcium 8.1 L (8.5-10.1) mg/dL Troponin I < 0.017 (0.00-0.056) ng/mL Triglycerides 45 (<150) mg/dL Cholesterol 115 (<200) mg/dL LDL Cholesterol Direct 65 (<100) mg/dL HDL Cholesterol 52.0 (40-59) mg/dL TSH 3rd Generation 2.620 (0.358-3.74) uIU/mL 04/19/17 Range/Units 10:46 WBC (4.23-9.07) K/mm3 RBC (4.63-6.08) M/mm3 Hgb (13.7-17.5) gm/L Hct (40.1-51.0) % MCV (79.0-92.2) fl MCH (25.7-32.2) pg MCHC (32.2-35.5) g/dl RDW Std Deviation (35.1-43.9) fL Plt Count (163-337) K/mm3 MPV (9.4-12.3) fl Neut % (Auto) (34.0-67.9) % Lymph % (Auto) (21.8-53.1) % [place] % (Auto) (5.3-12.2) % Eos % (Auto) (0.8-7.0) Baso % (Auto) (0.1-1.2) % Neut # (Auto) (1.78-5.38) K/mm3 Lymph # (Auto) (1.32-3.57) K/mm3 [place] # (Auto) (0.30-0.82) K/mm3 Eos # (Auto) (0.04-0.54) K/mm3 Baso # (Auto) (0.01-0.08) K/mm3 Sodium (136-145) mEq/L Potassium (3.5-5.1) mEq/L Chloride (98-107) mEq/L Carbon Dioxide (21-32) mEq/L Anion Gap (5-15) BUN (7-18) mg/dL Creatinine (0.7-1.3) mg/dL Est Cr Clr Drug Dosing mL/min Estimated GFR (MDRD) (>60) mL/min BUN/Creatinine Ratio (14-18) Glucose (83-115) mg/dL POC Glucose 165 H (83-110) mg/dL Calcium (8.5-10.1) mg/dL Troponin I (0.00-0.056) ng/mL Triglycerides (<150) mg/dL Cholesterol (<200) mg/dL LDL Cholesterol Direct (<100) mg/dL HDL Cholesterol (40-59) mg/dL TSH 3rd Generation (0.358-3.74) uIU/mL Med Orders - Current: Current Medications Acetaminophen (Tylenol) 650 mg PO Q4H PRN PRN Reason: Pain Amlodipine Besylate (Norvasc) 10 mg PO DAILY [facility] Last Admin: 04/19/17 08:56 Dose: 10 mg Aspirin (Halfprin) 81 mg PO DAILY [facility] Last Admin: 04/19/17 08:56 Dose: 81 mg Dextrose/Water (Dextrose 50% In Water) 50 ml IVPUSH ASDIRECTED PRN PRN Reason: Hypoglycemia Enoxaparin Sodium (Lovenox) 40 mg SUBCUT DAILY [facility] Last Admin: 04/19/17 08:56 Dose: 40 mg Hydralazine HCl (Apresoline) 10 mg IVPUSH Q6H PRN PRN Reason: Hypertension Last Admin: 04/18/17 01:56 Dose: 10 mg Sodium Chloride (Sodium Chloride 0.45%) 1,000 mls @ 70 mls/hr IV ASDIRECTED [facility] Last Admin: 04/19/17 08:01 Dose: 70 mls/hr Insulin Aspart (Novolog) 0 unit SUBCUT QIDACANDBED [facility] PRN Reason: Protocol Last Admin: 04/19/17 11:32 Dose: 1 units Oxybutynin Chloride (Oxybutynin Er) 5 mg PO DAILY [facility] Last Admin: 04/19/17 08:56 Dose: 5 mg Simvastatin (Zocor) 10 mg PO BEDTIME [facility] Last Admin: 04/18/17 20:03 Dose: 10 mg Tamsulosin HCl (Flomax) 0.4 mg PO BID [facility] Last Admin: 04/19/17 08:58 Dose: 0.4 mg Temazepam (Restoril) 7.5 mg PO BEDTIME PRN PRN Reason: Sleep Last Admin: 04/19/17 00:39 Dose: 7.5 mg Discontinued Medications Enoxaparin Sodium (Lovenox) 30 mg SUBCUT DAILY [facility] Last Admin: 04/18/17 09:43 Dose: 30 mg Gadobenate Dimeglumine (Multihance) 20 ml IVPUSH ONETIME ONE Stop: 04/19/17 08:04 Last Admin: 04/19/17 08:44 Dose: 20 ml Magnesium Sulfate 2 gm/ Premix 50 mls @ 25 mls/hr IV ONETIME ONE Stop: 04/18/17 02:08 Last Admin: 04/18/17 00:56 Dose: 25 mls/hr Potassium Chloride (Potassium Chloride) 60 meq PO ONETIME ONE Stop: 04/18/17 09:38 Last Admin: 04/18/17 09:45 Dose: 60 meq Sodium Chloride (Normal Saline) 30 ml FLUSH ONETIME ONE Stop: 04/19/17 08:04 Last Admin: 04/19/17 08:44 Dose: 30 ml - Exam Quality Assessment: supplemental oxygen, DVT prophylaxis General: alert, oriented, cooperative, no acute distress HEENT: Pupils equal, Pupils reactive, EOMI Neck: supple, trachea midline, no JVD Lungs: Normal respiratory effort, Decreased breath sounds Cardiovascular: Regular Rate, Regular Rhythm Abdomen: bowel sounds present, soft, no tenderness, no distension (Male) Exam: Deferred Back Exam: Normal Inspection Extremities: normal pulses Skin: warm Neurological: no new focal deficit, other (alert/oriented times one, to self) Psy/Mental Status: alert, normal affect, normal mood - Problem List & Annotations (1) Acute on chronic renal failure SNOMED Code(s): 587758857 Code(s): N17.9 - ACUTE KIDNEY FAILURE, UNSPECIFIED; N18.9 - CHRONIC KIDNEY DISEASE, UNSPECIFIED Status: Acute Current Visit: Yes (2) Generalized weakness SNOMED Code(s): 86005355 Code(s): R53.1 - WEAKNESS Status: Acute Current Visit: Yes (3) Hyperglycemia due to type 2 diabetes mellitus SNOMED Code(s): 137751522944230, 931041621684328 Code(s): E11.65 - TYPE 2 DIABETES MELLITUS WITH HYPERGLYCEMIA Status: Acute Current Visit: Yes - Problem List Review Problem List Initiated/Reviewed/Updated: Yes - My Orders Last 24 Hours: My Active Orders 04/18/17 15:29 Neuro Check [RC] QSHIFT 04/18/17 21:00 Simvastatin [Zocor] 10 mg PO BEDTIME 04/19/17 07:37 FOLIC ACID [CHEM] Routine VITAMIN B12 [CHEM] Routine 04/20/17 05:00 CBC WITH AUTO DIFF [HEME] DAILY - Plan Plan:: Impression: AMS, acute on chronic likely baseline dementia; resolved CT of head ordered this am; documents multiple infarcts Abnormal ambulation, falls to the right Can not exclude CVA; generalized weakness of unclear etiology Hypomagnesemia-->replace Chronic DM HTN HLD Prostate cancer Macular Degeneration CKD, stage III Plan: CT of head, completed MRA Carotid dupelx 2D echo ASA Home meds Daily labs neurochecks SW/PT/OT DVT/GI prophylaxis
[2017-04-19] MEDS: hydrALAZINE 20 MG/ML SDV IVPUSH PRN (17:58)
[2017-04-19] MEDS: Simvastatin 10 MG Tab PO SCH (21:56)
[2017-04-20] MEDS: amLODIPine 10 MG Tab PO SCH (09:24)
[2017-04-20] MEDS: Aspirin 81 MG Tab.EC PO SCH (09:24)
[2017-04-20] MEDS: Tamsulosin 0.4 MG Cap.ER PO SCH ×2 (09:24→21:42)
[2017-04-20] MEDS: Oxybutynin 5 MG Tab.ER PO SCH (09:24)
[2017-04-20] MEDS: Enoxaparin 40 MG/0.4 ML Syringe SUBCUT SCH (09:25)
[2017-04-20] MEDS: Insulin Aspart 100 Units/ML 3 ML Pen SUBCUT SCH ×4 (09:25→21:43)
--- NOTE | 2017-04-20 13:08 | PCM.PN ---
- General Info Date of Service: 04/20/17 Functional Status: Reports: tolerating diet, ambulating (with assistance/walker) , urinating - Review of Systems General: Reports: No Symptoms HEENT: Reports: no symptoms Pulmonary: Reports: no symptoms Cardiovascular: Reports: No Symptoms Gastrointestinal: Reports: No symptoms Genitourinary: Reports: no symptoms Musculoskeletal: Reports: no symptoms Skin: Reports: no symptoms Neurological: Reports: No Symptoms Psychiatric: Reports: no symptoms - Patient Data Vitals - most recent: Last Vital Signs Temp 37.1 C 04/20/17 08:19 Pulse 79 04/20/17 08:19 Resp 14 04/20/17 08:19 BP 175/87 H 04/20/17 09:24 Pulse Ox 93 L 04/20/17 08:19 Weight - most recent: 73.936 kg I&O - last 24 hours: Intake & Output 04/19/17 04/20/17 04/20/17 22:59 06:59 14:59 Intake Total 1395 1134 240 Output Total 600 800 Balance 795 334 240 Lab Results last 24 hrs: Laboratory Results - last 24 hr 04/19/17 04/19/17 04/19/17 Range/Units 07:37 17:01 21:55 WBC (4.23-9.07) K/mm3 RBC (4.63-6.08) M/mm3 Hgb (13.7-17.5) gm/L Hct (40.1-51.0) % MCV (79.0-92.2) fl MCH (25.7-32.2) pg MCHC (32.2-35.5) g/dl RDW Std Deviation (35.1-43.9) fL Plt Count (163-337) K/mm3 MPV (9.4-12.3) fl Neut % (Auto) (34.0-67.9) % Lymph % (Auto) (21.8-53.1) % [place] % (Auto) (5.3-12.2) % Eos % (Auto) (0.8-7.0) Baso % (Auto) (0.1-1.2) % Neut # (Auto) (1.78-5.38) K/mm3 Lymph # (Auto) (1.32-3.57) K/mm3 [place] # (Auto) (0.30-0.82) K/mm3 Eos # (Auto) (0.04-0.54) K/mm3 Baso # (Auto) (0.01-0.08) K/mm3 POC Glucose 132 H 225 H (83-110) mg/dL Vitamin B12 251 (193-986) pg/ml Folate 9.6 (8.6-58.9) ng/mL 04/20/17 04/20/17 04/20/17 Range/Units 06:30 06:50 12:15 WBC 5.98 (4.23-9.07) K/mm3 RBC 4.39 L (4.63-6.08) M/mm3 Hgb 12.0 L (13.7-17.5) gm/L Hct 35.1 L (40.1-51.0) % MCV 80.0 (79.0-92.2) fl MCH 27.3 (25.7-32.2) pg MCHC 34.2 (32.2-35.5) g/dl RDW Std Deviation 39.6 (35.1-43.9) fL Plt Count 142 L (163-337) K/mm3 MPV 10.5 (9.4-12.3) fl Neut % (Auto) 69.5 H (34.0-67.9) % Lymph % (Auto) 13.2 L (21.8-53.1) % [place] % (Auto) 10.5 (5.3-12.2) % Eos % (Auto) 6.4 (0.8-7.0) Baso % (Auto) 0.2 (0.1-1.2) % Neut # (Auto) 4.16 (1.78-5.38) K/mm3 Lymph # (Auto) 0.79 L (1.32-3.57) K/mm3 [place] # (Auto) 0.63 (0.30-0.82) K/mm3 Eos # (Auto) 0.38 (0.04-0.54) K/mm3 Baso # (Auto) 0.01 (0.01-0.08) K/mm3 POC Glucose 165 H 233 H (83-110) mg/dL Vitamin B12 (193-986) pg/ml Folate (8.6-58.9) ng/mL Med Orders - Current: Current Medications Acetaminophen (Tylenol) 650 mg PO Q4H PRN PRN Reason: Pain Amlodipine Besylate (Norvasc) 10 mg PO DAILY [facility] Last Admin: 04/20/17 09:24 Dose: 10 mg Aspirin (Halfprin) 81 mg PO DAILY [facility] Last Admin: 04/20/17 09:24 Dose: 81 mg Dextrose/Water (Dextrose 50% In Water) 50 ml IVPUSH ASDIRECTED PRN PRN Reason: Hypoglycemia Enoxaparin Sodium (Lovenox) 40 mg SUBCUT DAILY [facility] Last Admin: 04/20/17 09:25 Dose: 40 mg Hydralazine HCl (Apresoline) 10 mg IVPUSH Q6H PRN PRN Reason: Hypertension Last Admin: 04/19/17 17:58 Dose: 10 mg Sodium Chloride (Sodium Chloride 0.45%) 1,000 mls @ 70 mls/hr IV ASDIRECTED [facility] Last Admin: 04/19/17 22:05 Dose: 70 mls/hr Insulin Aspart (Novolog) 0 unit SUBCUT QIDACANDBED [facility] PRN Reason: Protocol Last Admin: 04/20/17 12:16 Dose: 2 units Oxybutynin Chloride (Oxybutynin Er) 5 mg PO DAILY [facility] Last Admin: 04/20/17 09:24 Dose: 5 mg Simvastatin (Zocor) 10 mg PO BEDTIME [facility] Last Admin: 04/19/17 21:56 Dose: 10 mg Tamsulosin HCl (Flomax) 0.4 mg PO BID [facility] Last Admin: 04/20/17 09:24 Dose: 0.4 mg Temazepam (Restoril) 7.5 mg PO BEDTIME PRN PRN Reason: Sleep Last Admin: 04/19/17 00:39 Dose: 7.5 mg Discontinued Medications Enoxaparin Sodium (Lovenox) 30 mg SUBCUT DAILY [facility] Last Admin: 04/18/17 09:43 Dose: 30 mg Gadobenate Dimeglumine (Multihance) 20 ml IVPUSH ONETIME ONE Stop: 04/19/17 08:04 Last Admin: 04/19/17 08:44 Dose: 20 ml Magnesium Sulfate 2 gm/ Premix 50 mls @ 25 mls/hr IV ONETIME ONE Stop: 04/18/17 02:08 Last Admin: 04/18/17 00:56 Dose: 25 mls/hr Potassium Chloride (Potassium Chloride) 60 meq PO ONETIME ONE Stop: 04/18/17 09:38 Last Admin: 04/18/17 09:45 Dose: 60 meq Sodium Chloride (Normal Saline) 30 ml FLUSH ONETIME ONE Stop: 04/19/17 08:04 Last Admin: 04/19/17 08:44 Dose: 30 ml - Exam Quality Assessment: DVT prophylaxis General: alert, oriented, cooperative, no acute distress HEENT: Pupils equal, Pupils reactive, EOMI Neck: supple, trachea midline, no JVD Lungs: Normal respiratory effort Cardiovascular: Regular Rate, Regular Rhythm Abdomen: bowel sounds present, soft, no tenderness, no distension (Male) Exam: Deferred Back Exam: Normal Inspection Extremities: normal pulses Skin: warm Neurological: no new focal deficit Psy/Mental Status: alert, normal affect, normal mood - Problem List & Annotations (1) Acute on chronic renal failure SNOMED Code(s): 211713226 Code(s): N17.9 - ACUTE KIDNEY FAILURE, UNSPECIFIED; N18.9 - CHRONIC KIDNEY DISEASE, UNSPECIFIED Status: Acute Current Visit: Yes (2) Generalized weakness SNOMED Code(s): 58332704 Code(s): R53.1 - WEAKNESS Status: Acute Current Visit: Yes (3) Hyperglycemia due to type 2 diabetes mellitus SNOMED Code(s): 720216234631084, 254981486969970 Code(s): E11.65 - TYPE 2 DIABETES MELLITUS WITH HYPERGLYCEMIA Status: Acute Current Visit: Yes (4) Dementia SNOMED Code(s): 00052206 Code(s): F03.90 - UNSPECIFIED DEMENTIA WITHOUT BEHAVIORAL DISTURBANCE Status: Acute Current Visit: Yes Qualifiers: Alzheimer's disease onset: unspecified onset - Problem List Review Problem List Initiated/Reviewed/Updated: Yes - My Orders Last 24 Hours: My Active Orders 04/19/17 21:30 EKG 12 Lead [EKG Documentation Completion] [RC] STAT - Plan Plan:: Impression: AMS, acute on chronic likely baseline dementia; resolved CT of head ordered this am; documents multiple infarcts Generalized weakness, unspecified Negative CVA work up. Hypomagnesemia-->replace Chronic DM HTN HLD Prostate cancer Macular Degeneration CKD, stage III Plan: ASA Home meds Daily labs neurochecks SW/PT/OT DVT/GI prophylaxis DC to SNF in the AM, 04/21/17.
[2017-04-20] MEDS: Sodium Chloride 0.45% 1,000 ML IV SCH (13:57)
[2017-04-20] MEDS: Simvastatin 10 MG Tab PO SCH (21:41)
[2017-04-21] MEDS: Sodium Chloride 0.45% 1,000 ML IV SCH (04:01)
--- NOTE | 2017-04-21 06:50 | PCM.DCSUM1 ---
<Siobhan Mendoza M - Last Filed: 04/21/17 06:45> Discharge Summary - Hospital Course Free Text/Narrative:: 81 year old male seen in the ED, unable to provide history, reportedly told the ED provider that he fell twice and was too weak to get off of the floor. There was no LOC, recollection of the evnts is incomplete. He appears to have acute on chronic changes with a baseline dementia; a speech pathology consuly is pending. As a result of his presentation, a CVA work up has been started. Hospitalist service is consulted for admission for fall and ? TIA vs CVA. 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 MRI/MRA of head and neck unremarkable. Carotid US with 1-49% plaque noted. Echocardiogram with 60-65% EF, no acute valvular concerns. CXR unremarkable. He worked with ST, PT, OT who recommend SNF placement. He will be dc'd today to [facility] for rehab stay. - Discharge Data Discharge Date: 04/21/17 (admit date 04/18/17) Discharge Disposition: DC/Tfer to SNF 03 Condition: Good - Patient Summary/Data Operative Procedure(s) Performed: None Complications: None Consults: Speech therapy Occupational therapy Physical therapy Labs Pending at D/C: None Recommended Follow-up Testing/Procedures: Follow up with PCP within one week of discharge Continue PT/OT at SNF Planned Operative Procedure(s) after DC: None Hospital Course: As above - Patient Instructions Diet: Heart Healthy Diet Activity: As Tolerated (PT/OT to continue) Driving: Do Not Drive Showering/Bathing: May Shower Notify Provider of: Fever, Increased Pain, Nausea and/or Vomiting - Discharge Plan Prescriptions/Med Rec: Simvastatin [Zocor] 10 mg PO BEDTIME #30 tablet Tamsulosin [Flomax] 0.4 mg PO BID #30 cap.er Home Medications: Home Meds Aspirin [Ecotrin] 81 mg PO DAILY 02/19/17 [History] Ca Carbonate/Vitamin D3/Vit K [Calcium + D Soft Chewable Tab] 600 mg PO BID [History] Lisinopril [Zestril] 40 mg PO DAILY 02/19/17 [History] Lutein 6 mg PO BID 02/19/17 [History] Magnesium Hydroxide [Milk of Magnesia] 30 ml PO DAILY PRN 02/19/17 [History] Oxybutynin [Oxybutynin ER] 5 mg PO DAILY 02/19/17 [History] Saxagliptin HCl [Onglyza] 5 mg PO DAILY 02/19/17 [History] amLODIPine [Norvasc] 10 mg PO DAILY 02/19/17 [History] metFORMIN [Glucophage XR] 1,000 mg PO BID 02/19/17 [History] Ascorbic Acid 500 mg PO BID 04/17/17 [History] Bilberry 60 mg PO BID 04/17/17 [History] Acetaminophen [Tylenol] 650 mg PO Q4H PRN #0 tablet 04/21/17 [Rx] Simvastatin [Zocor] 10 mg PO BEDTIME #30 tablet 04/21/17 [Rx] Tamsulosin [Flomax] 0.4 mg PO BID #30 cap.er 04/21/17 [Rx] Patient Handouts: Confusion, Transient Ischemic Attack, [id number], Weakness , [id number], Acute Urinary Retention, Male, Managing Your High Blood Pressure , Hypertension Referrals: Lisha Vargas DO [Ordering Only Provider] - Norris Lord MD [Physician] - - Discharge Summary/Plan Comment DC Time >30 min.: Yes (40 min) - General Info Date of Service: 04/21/17 Admission Dx/Problem (Free Text: Admission Diagnosis/Problem Admission Diagnosis/Problem Weakness, Fall, TIA Doing well with therapies, plans for DC to [facility] for rehab stay today. Functional Status: Reports: pain controlled, tolerating diet, ambulating, urinating. Denies: new symptoms - Review of Systems General: Reports: Weakness (improved) HEENT: Reports: no symptoms Pulmonary: Reports: no symptoms Cardiovascular: Reports: No Symptoms Gastrointestinal: Reports: No symptoms Genitourinary: Reports: no symptoms Musculoskeletal: Reports: no symptoms Skin: Reports: no symptoms Neurological: Reports: Confusion (pleasant, intermittent confusion- baseline dementia) Psychiatric: Reports: confusion (baseline dementia) - Patient Data Vitals - Most Recent: Last Vital Signs Temp 98.2 F 04/21/17 02:43 Pulse 81 04/21/17 02:43 Resp 18 04/21/17 02:43 BP 144/84 H 04/21/17 02:43 Pulse Ox 94 L 04/21/17 02:43 Weight - Most Recent: 71.169 kg I&O - Last 24 hours: Intake & Output 04/20/17 04/20/17 04/21/17 14:59 22:59 06:59 Intake Total 240 1530 1318 Output Total 450 200 Balance 240 1080 1118 Lab Results - Last 24 hrs: Laboratory Results - last 24 hr 04/20/17 04/20/17 04/20/17 Range/Units 06:30 06:50 12:15 WBC 5.98 (4.23-9.07) K/mm3 RBC 4.39 L (4.63-6.08) M/mm3 Hgb 12.0 L (13.7-17.5) gm/L Hct 35.1 L (40.1-51.0) % MCV 80.0 (79.0-92.2) fl MCH 27.3 (25.7-32.2) pg MCHC 34.2 (32.2-35.5) g/dl RDW Std Deviation 39.6 (35.1-43.9) fL Plt Count 142 L (163-337) K/mm3 MPV 10.5 (9.4-12.3) fl Neut % (Auto) 69.5 H (34.0-67.9) % Lymph % (Auto) 13.2 L (21.8-53.1) % [place] % (Auto) 10.5 (5.3-12.2) % Eos % (Auto) 6.4 (0.8-7.0) Baso % (Auto) 0.2 (0.1-1.2) % Neut # (Auto) 4.16 (1.78-5.38) K/mm3 Lymph # (Auto) 0.79 L (1.32-3.57) K/mm3 [place] # (Auto) 0.63 (0.30-0.82) K/mm3 Eos # (Auto) 0.38 (0.04-0.54) K/mm3 Baso # (Auto) 0.01 (0.01-0.08) K/mm3 POC Glucose 165 H 233 H (83-110) mg/dL 04/20/17 04/20/17 04/21/17 Range/Units 16:48 21:40 05:51 WBC (4.23-9.07) K/mm3 RBC (4.63-6.08) M/mm3 Hgb (13.7-17.5) gm/L Hct (40.1-51.0) % MCV (79.0-92.2) fl MCH (25.7-32.2) pg MCHC (32.2-35.5) g/dl RDW Std Deviation (35.1-43.9) fL Plt Count (163-337) K/mm3 MPV (9.4-12.3) fl Neut % (Auto) (34.0-67.9) % Lymph % (Auto) (21.8-53.1) % [place] % (Auto) (5.3-12.2) % Eos % (Auto) (0.8-7.0) Baso % (Auto) (0.1-1.2) % Neut # (Auto) (1.78-5.38) K/mm3 Lymph # (Auto) (1.32-3.57) K/mm3 [place] # (Auto) (0.30-0.82) K/mm3 Eos # (Auto) (0.04-0.54) K/mm3 Baso # (Auto) (0.01-0.08) K/mm3 POC Glucose 157 H 155 H 151 H (83-110) mg/dL Med Orders - Current: Current Medications Acetaminophen (Tylenol) 650 mg PO Q4H PRN PRN Reason: Pain Amlodipine Besylate (Norvasc) 10 mg PO DAILY [facility] Last Admin: 04/20/17 09:24 Dose: 10 mg Aspirin (Halfprin) 81 mg PO DAILY [facility] Last Admin: 04/20/17 09:24 Dose: 81 mg Dextrose/Water (Dextrose 50% In Water) 50 ml IVPUSH ASDIRECTED PRN PRN Reason: Hypoglycemia Enoxaparin Sodium (Lovenox) 40 mg SUBCUT DAILY [facility] Last Admin: 04/20/17 09:25 Dose: 40 mg Hydralazine HCl (Apresoline) 10 mg IVPUSH Q6H PRN PRN Reason: Hypertension Last Admin: 04/19/17 17:58 Dose: 10 mg Sodium Chloride (Sodium Chloride 0.45%) 1,000 mls @ 70 mls/hr IV ASDIRECTED [facility] Last Admin: 04/21/17 04:01 Dose: 70 mls/hr Insulin Aspart (Novolog) 0 unit SUBCUT QIDACANDBED [facility] PRN Reason: Protocol Last Admin: 04/20/17 21:43 Dose: 1 units Oxybutynin Chloride (Oxybutynin Er) 5 mg PO DAILY [facility] Last Admin: 04/20/17 09:24 Dose: 5 mg Simvastatin (Zocor) 10 mg PO BEDTIME [facility] Last Admin: 04/20/17 21:41 Dose: 10 mg Tamsulosin HCl (Flomax) 0.4 mg PO BID [facility] Last Admin: 04/20/17 21:42 Dose: 0.4 mg Temazepam (Restoril) 7.5 mg PO BEDTIME PRN PRN Reason: Sleep Last Admin: 04/19/17 00:39 Dose: 7.5 mg Discontinued Medications Enoxaparin Sodium (Lovenox) 30 mg SUBCUT DAILY [facility] Last Admin: 04/18/17 09:43 Dose: 30 mg Gadobenate Dimeglumine (Multihance) 20 ml IVPUSH ONETIME ONE Stop: 04/19/17 08:04 Last Admin: 04/19/17 08:44 Dose: 20 ml Magnesium Sulfate 2 gm/ Premix 50 mls @ 25 mls/hr IV ONETIME ONE Stop: 04/18/17 02:08 Last Admin: 04/18/17 00:56 Dose: 25 mls/hr Potassium Chloride (Potassium Chloride) 60 meq PO ONETIME ONE Stop: 04/18/17 09:38 Last Admin: 04/18/17 09:45 Dose: 60 meq Sodium Chloride (Normal Saline) 30 ml FLUSH ONETIME ONE Stop: 04/19/17 08:04 Last Admin: 04/19/17 08:44 Dose: 30 ml - Exam Quality Assessment: Reports: DVT prophylaxis General: Reports: alert, oriented, cooperative, no acute distress HEENT: Reports: Pupils equal, Pupils reactive, EOMI, Mucous membr. moist/pink Neck: Reports: supple Lungs: Reports: Clear to auscultation, Normal respiratory effort, Decreased breath sounds (bases) Cardiovascular: Reports: Regular Rate, Regular Rhythm Abdomen: Reports: bowel sounds present, soft, no tenderness, no distension (Male) Exam: Deferred Rectal (Males) Exam: Deferred Extremities: Reports: no edema Neurological: Reports: no new focal deficit Psy/Mental Status: Reports: alert, normal affect, normal mood *Q Meaningful Use (DIS) - VTE *Q VTE Criteria *Q: - Stroke *Q Stroke Criteria *Q: - AMI *Q AMI Criteria *Q: <Lainey Barahona Ventura - Last Filed: 04/21/17 20:20> Discharge Summary - Hospital Course Free Text/Narrative:: Agree with summary, will be discharged to [facility] - Discharge Diagnosis/Problem(s) (1) Acute on chronic renal failure SNOMED Code(s): 568114985 ICD Code: N17.9 - ACUTE KIDNEY FAILURE, UNSPECIFIED; N18.9 - CHRONIC KIDNEY DISEASE, UNSPECIFIED Status: Acute (2) Generalized weakness SNOMED Code(s): 57877959 ICD Code: R53.1 - WEAKNESS Status: Acute (3) Hyperglycemia due to type 2 diabetes mellitus SNOMED Code(s): 108168194542791, 811595399269057 ICD Code: E11.65 - TYPE 2 DIABETES MELLITUS WITH HYPERGLYCEMIA Status: Acute (4) Dementia SNOMED Code(s): 29879357 ICD Code: F03.90 - UNSPECIFIED DEMENTIA WITHOUT BEHAVIORAL DISTURBANCE Status: Acute Qualifiers: Alzheimer's disease onset: unspecified onset - Patient Data Vitals - Most Recent: Last Vital Signs Temp 37.4 C 04/21/17 07:29 Pulse 63 04/21/17 07:31 Resp 12 04/21/17 07:29 BP 159/68 H 04/21/17 08:04 Pulse Ox 94 L 04/21/17 07:31 I&O - Last 24 hours: Intake & Output 04/21/17 04/21/17 04/21/17 06:59 14:59 22:59 Intake Total 1318 579 Output Total 200 Balance 1118 579 Lab Results - Last 24 hrs: Laboratory Results - last 24 hr 04/20/17 04/21/17 04/21/17 Range/Units 21:40 05:51 06:44 WBC 5.65 (4.23-9.07) K/mm3 RBC 4.33 L (4.63-6.08) M/mm3 Hgb 11.8 L (13.7-17.5) gm/L Hct 34.6 L (40.1-51.0) % MCV 79.9 (79.0-92.2) fl MCH 27.3 (25.7-32.2) pg MCHC 34.1 (32.2-35.5) g/dl RDW Std Deviation 38.8 (35.1-43.9) fL Plt Count 176 (163-337) K/mm3 MPV 9.9 (9.4-12.3) fl Neut % (Auto) 63.8 (34.0-67.9) % Lymph % (Auto) 15.2 L (21.8-53.1) % [place] % (Auto) 13.1 H (5.3-12.2) % Eos % (Auto) 7.3 H (0.8-7.0) Baso % (Auto) 0.4 (0.1-1.2) % Neut # (Auto) 3.61 (1.78-5.38) K/mm3 Lymph # (Auto) 0.86 L (1.32-3.57) K/mm3 [place] # (Auto) 0.74 (0.30-0.82) K/mm3 Eos # (Auto) 0.41 (0.04-0.54) K/mm3 Baso # (Auto) 0.02 (0.01-0.08) K/mm3 Sodium (136-145) mEq/L Potassium (3.5-5.1) mEq/L Chloride (98-107) mEq/L Carbon Dioxide (21-32) mEq/L Anion Gap (5-15) BUN (7-18) mg/dL Creatinine (0.7-1.3) mg/dL Est Cr Clr Drug Dosing mL/min Estimated GFR (MDRD) (>60) mL/min BUN/Creatinine Ratio (14-18) Glucose (83-115) mg/dL POC Glucose 155 H 151 H (83-110) mg/dL Calcium (8.5-10.1) mg/dL 04/21/17 Range/Units 06:44 WBC (4.23-9.07) K/mm3 RBC (4.63-6.08) M/mm3 Hgb (13.7-17.5) gm/L Hct (40.1-51.0) % MCV (79.0-92.2) fl MCH (25.7-32.2) pg MCHC (32.2-35.5) g/dl RDW Std Deviation (35.1-43.9) fL Plt Count (163-337) K/mm3 MPV (9.4-12.3) fl Neut % (Auto) (34.0-67.9) % Lymph % (Auto) (21.8-53.1) % [place] % (Auto) (5.3-12.2) % Eos % (Auto) (0.8-7.0) Baso % (Auto) (0.1-1.2) % Neut # (Auto) (1.78-5.38) K/mm3 Lymph # (Auto) (1.32-3.57) K/mm3 [place] # (Auto) (0.30-0.82) K/mm3 Eos # (Auto) (0.04-0.54) K/mm3 Baso # (Auto) (0.01-0.08) K/mm3 Sodium 138 (136-145) mEq/L Potassium 3.4 L (3.5-5.1) mEq/L Chloride 103 (98-107) mEq/L Carbon Dioxide 27 (21-32) mEq/L Anion Gap 11.4 (5-15) BUN 16 (7-18) mg/dL Creatinine 1.1 (0.7-1.3) mg/dL Est Cr Clr Drug Dosing 48.40 mL/min Estimated GFR (MDRD) > 60 (>60) mL/min BUN/Creatinine Ratio 14.5 (14-18) Glucose 170 H (83-115) mg/dL POC Glucose (83-110) mg/dL Calcium 8.6 (8.5-10.1) mg/dL Med Orders - Current: Current Medications Discontinued Medications Acetaminophen (Tylenol) 650 mg PO Q4H PRN PRN Reason: Pain Amlodipine Besylate (Norvasc) 10 mg PO DAILY [facility] Last Admin: 04/21/17 08:04 Dose: 10 mg Aspirin (Halfprin) 81 mg PO DAILY [facility] Last Admin: 04/21/17 08:04 Dose: 81 mg Dextrose/Water (Dextrose 50% In Water) 50 ml IVPUSH ASDIRECTED PRN PRN Reason: Hypoglycemia Enoxaparin Sodium (Lovenox) 30 mg SUBCUT DAILY [facility] Last Admin: 04/18/17 09:43 Dose: 30 mg Enoxaparin Sodium (Lovenox) 40 mg SUBCUT DAILY [facility] Last Admin: 04/21/17 08:05 Dose: 40 mg Gadobenate Dimeglumine (Multihance) 20 ml IVPUSH ONETIME ONE Stop: 04/19/17 08:04 Last Admin: 04/19/17 08:44 Dose: 20 ml Hydralazine HCl (Apresoline) 10 mg IVPUSH Q6H PRN PRN Reason: Hypertension Last Admin: 04/19/17 17:58 Dose: 10 mg Sodium Chloride (Sodium Chloride 0.45%) 1,000 mls @ 70 mls/hr IV ASDIRECTED [facility] Last Admin: 04/21/17 04:01 Dose: 70 mls/hr Magnesium Sulfate 2 gm/ Premix 50 mls @ 25 mls/hr IV ONETIME ONE Stop: 04/18/17 02:08 Last Admin: 04/18/17 00:56 Dose: 25 mls/hr Insulin Aspart (Novolog) 0 unit SUBCUT QIDACANDBED [facility] PRN Reason: Protocol Last Admin: 04/21/17 08:05 Dose: 1 units Oxybutynin Chloride (Oxybutynin Er) 5 mg PO DAILY [facility] Last Admin: 04/21/17 08:04 Dose: 5 mg Potassium Chloride (Potassium Chloride) 60 meq PO ONETIME ONE Stop: 04/18/17 09:38 Last Admin: 04/18/17 09:45 Dose: 60 meq Simvastatin (Zocor) 10 mg PO BEDTIME [facility] Last Admin: 04/20/17 21:41 Dose: 10 mg Sodium Chloride (Normal Saline) 30 ml FLUSH ONETIME ONE Stop: 04/19/17 08:04 Last Admin: 04/19/17 08:44 Dose: 30 ml Tamsulosin HCl (Flomax) 0.4 mg PO BID [facility] Last Admin: 04/21/17 08:04 Dose: 0.4 mg Temazepam (Restoril) 7.5 mg PO BEDTIME PRN PRN Reason: Sleep Last Admin: 04/19/17 00:39 Dose: 7.5 mg *Q Meaningful Use (DIS) - VTE *Q VTE Criteria *Q: - Stroke *Q Stroke Criteria *Q: - AMI *Q AMI Criteria *Q:
[2017-04-21] MEDS: amLODIPine 10 MG Tab PO SCH (08:04)
[2017-04-21] MEDS: Oxybutynin 5 MG Tab.ER PO SCH (08:04)
[2017-04-21] MEDS: Tamsulosin 0.4 MG Cap.ER PO SCH (08:04)
[2017-04-21] MEDS: Aspirin 81 MG Tab.EC PO SCH (08:04)
[2017-04-21] MEDS: Enoxaparin 40 MG/0.4 ML Syringe SUBCUT SCH (08:05)
[2017-04-21] MEDS: Insulin Aspart 100 Units/ML 3 ML Pen SUBCUT SCH (08:05)
[2017-04-21 08:06] VITALS: BP 159/68
== END 2017-04-21 10:38 | DRG 948 ==
LOC: JD.ED 20:08 → JD.MS 22:31 → OBSVTOIN 04-18 14:56 → JD.MS 04-18 17:00
PROVIDERS: ADMIT Internal Medicine Cardiovascular Disease; ATTEND Internal Medicine Cardiovascular Disease
DX: R53.1 Weakness (principal); N17.9 Acute kidney failure, unspecified; W19.XXXA Unspecified fall, initial encounter; I12.9 Hypertensive chronic kidney disease with stage 1 through stage 4 chronic kidney disease, or unspecified chronic kidney disease; N18.3 Chronic kidney disease, stage 3 (moderate); F03.90 Unspecified dementia, unspecified severity, without behavioral disturbance, psychotic disturbance, mood disturbance, and anxiety; E83.42 Hypomagnesemia; E11.65 Type 2 diabetes mellitus with hyperglycemia; Z79.84 Long term (current) use of oral hypoglycemic drugs; E78.00 Pure hypercholesterolemia, unspecified; F32.9 Major depressive disorder, single episode, unspecified; G47.33 Obstructive sleep apnea (adult) (pediatric); H35.30 Unspecified macular degeneration; Z85.46 Personal history of malignant neoplasm of prostate; Z79.82 Long term (current) use of aspirin; Z79.899 Other long term (current) drug therapy; Z88.8 Allergy status to other drugs, medicaments and biological substances; R33.9 Retention of urine, unspecified; Z86.73 Personal history of transient ischemic attack (TIA), and cerebral infarction without residual deficits; Z87.891 Personal history of nicotine dependence
CPT/HCPCS: 36415; 51702; 51798; 70450; 70450-26; 70548; 70548-26; 71010; 71010-26; 80048; 80053; 80061; 81001; 82607; 82746; 82962; 83735; 84443; 84484; 85025; 86738; 87641; 93005; 93306; 93880; 93880-26; 96125-GN; 96361; 96365; 96366; 96372; 96375; 97116-GP; 97162-GP; 97166-GO; 97530-GO; 97530-GP; 97535-GO; 99219; 99231; 99232; 99239; 99284; 99285-25; A9270-GY; A9577; G0378; J0360; J1650; J1815-GY; J3475; J7030